=== PATIENT | male | born 1975 | race Caucasian/White ===

== ENCOUNTER 2020-08-13 14:08 | Emergency (ER) | payer OTHER ==
[~2020-08-13 14:08] MED LIST: CLARITIN10 MG PO; LIPITOR TAB 2020 MG PO; LISINOPRIL20 MG PO; NORCO 5-325 TA1 EACH PO; NORCO 7.5-3251 EACH PO; OMEPRAZOLE40 MG PO; SYNTHROID25 MCG PO; VITAMIN D250000 UNIT PO
[2020-08-13 15:00] LABS: HEMOGLOBIN 16.6 gm/dl (14.0-17.5); RED BLOOD COUNT 5.63 M/UL (4.20-5.50); WHITE BLOOD COUNT 9.8 K/UL (4.5-11.0)
[2020-08-13 15:23] LABS: BUN/CREATININE RATIO 17 (0-10)
[2020-08-13] MEDS ORDERED: BENTYL 20MG TAB20 MG PO (21:37)
[2020-08-13] MEDS ORDERED: ZOFRAN ODT 4 MG4 MG PO (21:37)
[2020-08-13] MEDS ORDERED: LODINE CAP 300300 MG PO (21:37)
== END 2020-08-13 21:49 | disposition home or self-care (01) ==
LOC: ER1 14:08
PROVIDERS: Physician Assistant
DX: R10.84 Generalized abdominal pain (principal); R11.2 Nausea with vomiting, unspecified; R91.1 Solitary pulmonary nodule; E78.5 Hyperlipidemia, unspecified; I10 Essential (primary) hypertension; J44.9 Chronic obstructive pulmonary disease, unspecified; Z90.49 Acquired absence of other specified parts of digestive tract; Z79.899 Other long term (current) drug therapy
CPT/HCPCS: 71045; 80053; 82150; 82550; 82553; 82962; 83605; 83690; 83874; 84484; 85025; 87040; 93005; 96374; 99284; J2405; Q9967